=== PATIENT | male | born 1980 | race Caucasian/White ===

== ENCOUNTER 2018-05-11 19:32 | Emergency (ER) | payer MEDICAID ==
[~2018-05-11] VITALS: Ht 162.6 cm; Wt 73.2 kg
[2018-05-11 20:01] VITALS: Ht 162.6 cm; Wt 73.2 kg
[2018-05-11 21:24] VITALS: BP 132/89
== END 2018-05-11 21:24 | disposition home or self-care (01) ==
LOC: ED 19:32
DX: Z00.00 Encounter for general adult medical examination without abnormal findings (principal)